=== PATIENT | female | born 1965 | race Caucasian/White ===

== ENCOUNTER 2016-09-26 21:00 | Emergency (ER) | payer OTHER ==
[~2016-09-26] VITALS: Ht 152.4 cm; Wt 63.5 kg
[2016-09-26 21:07] VITALS: BP 123/72; PULSE 99; RESP 16; TEMP 97.7; O2SAT 99
--- NOTE | 2016-09-26 21:23 | PD ---
Physical Exam Time Seen by Provider: 21:20 Narrative 51yo F sent from [facility] for vomiting blood. Reports having a problem w/alcohol. Patient states she didn't vomit blood, she coughed up blood and has been coughing blood ofr one week. States she sticks her fingers in her throat, because she OCD, and it causes her to bleed. Patient stable. Patient seen in triage. Awaiting bed placement. Data Data Last Documented VS Vital Signs Date Time Temp Pulse Resp B/P Pulse Ox O2 Delivery O2 Flow Rate FiO2 09/26/16 21:07 97.7 99 16 123/72 [address] [facility] Supervised Visit with YAIMA: Marce Cordero Sep 26, 2016 21:23
[2016-09-26] MEDS ORDERED: ZOLO25TA PO (21:50)
[2016-09-26] MEDS ORDERED: CYCL1TAB29 PO (21:50)
[2016-09-26] MEDS ORDERED: GABA300C5 PO (21:50)
[2016-09-26] MEDS ORDERED: DISU1TAB6 PO (21:50)
[2016-09-26] MEDS ORDERED: HYDR50TA94 PO (21:50)
--- NOTE | 2016-09-26 21:58 | RADRPT ---
EXAM DATE/TIME: 09/26/2016 21:42 [place] COMPARISON: No previous studies available for comparison. INDICATIONS : Cough MEDICAL HISTORY : None. SURGICAL HISTORY : None. ENCOUNTER: Initial ACUITY: 2 days PAIN SCORE: 0/10 LOCATION: Bilateral chest FINDINGS: PA and lateral views of the chest demonstrate the lungs to be symmetrically aerated without evidence of mass, infiltrate or effusion. The cardiomediastinal contours are unremarkable. Osseous structure s are intact. CONCLUSION: No acute disease. Isael Decker MD on September 26, 2016 at 21:56 Board Certified Radiologist. This report was verified electronically.
[2016-09-26 22:39] LABS: AUTOMATED NEUTROPHIL # 4.7 TH/MM3 (1.8-7.7); BASOPHIL # 0.1 TH/MM3 (0-0.2); BASOPHIL % 0.9 % (0.0-2.0); EOSINOPHIL % 0.4 % (0.0-4.0); HEMATOCRIT 45.1 % (35.0-46.0); HEMO FLAGS DIFF FINAL; LYMPH % 39.4 % (9.0-44.0); LYMPHOCYTE # 3.8 TH/MM3 (1.0-4.8); MEAN CELL VOLUME 101.8 FL (80.0-100.0); MEAN CORPUSCULAR HEMOGLOBIN 35.8 PG (27.0-34.0); MEAN CORPUSCULAR HGB CONC 35.2 % (32.0-36.0); MONO % 9.7 % (0.0-8.0); NEUT % 49.6 % (16.0-70.0); PLATELET COUNT 230 TH/MM3 (150-450); RED BLOOD COUNT 4.43 MIL/MM3 (4.00-5.30); RED CELL DISTRIBUTION WIDTH 13.1 % (11.6-17.2); WHITE BLOOD COUNT 9.6 TH/MM3 (4.0-11.0)
[2016-09-26 22:49] LABS: AMPHETAMINE, URINE NEG (NEG); BARBITURATES, URINE NEG (NEG); COCAINE, URINE NEG (NEG)
[2016-09-26 23:36] LABS: ALKALINE PHOSPHATASE 185 U/L (45-117); ALT (GPT) 80 U/L (10-53); ANION GAP 8 MEQ/L (5-15); AST (GOT) 105 U/L (15-37); BICARBONATE 24.8 MEQ/L (21.0-32.0); BLOOD UREA NITROGEN 7 MG/DL (7-18); CHLORIDE 106 MEQ/L (98-107); GLOMERULAR FILTRATION RATE 75 ML/MIN (>89); POTASSIUM 3.6 MEQ/L (3.5-5.1); SODIUM (NA) 139 MEQ/L (136-145); TOTAL BILIRUBIN ADULT 0.4 MG/DL (0.2-1.0)
[2016-09-27 00:08] VITALS: BP 143/67; PULSE 90; RESP 19; O2SAT 98
--- NOTE | 2016-09-27 01:30 | PD ---
HPI Chief Complaint: Medical Clearance Time Seen by Provider: 22:05 Travel History International Travel<30 days: No Contact w/Intl Traveler<30days: No Traveled to known affect area: No History of Present Illness HPI Patient is a 51 year old female who was sent to ER for medical clearance. Reports that she is an alcoholic and tried to go to [facility] and get help but she reported that she vomited up blood and has been coughing. Patient denies si/hi. Reports "I just need medical clearance to go to [facility]. " PFS Past Medical History Diminished Hearing: No Tetanus Vaccination: Unknown Influenza Vaccination: No ?: Not LMP: unknown Past Surgical History Surgical History: Unable to Obtain Social History Alcohol Use: Yes (ETOH abuse) Tobacco Use: Yes Substance Use: No Allergies-Medications (Allergen,Severity, Reaction): Coded Allergies: No Known Allergies (Unverified , 09/26/16) Reported Meds & Prescriptions Reported Meds & Active Scripts Active Reported Disulfiram 250 Mg Tab 250 Mg PO DAILY Hydroxyzine HCl 50 Mg Tab 50 Mg PO HS Flexeril (Cyclobenzaprine HCl) 10 Mg Tab 10 Mg PO TID Zoloft (Sertraline HCl) 25 Mg Tab 25 Mg PO DAILY Gabapentin 300 Mg Cap 300 Mg PO TID Review of Systems General / Constitutional: No: Fever Eyes: No: Visual changes HENT: No: Headaches Cardiovascular: No: Chest Pain or Discomfort Respiratory: No: Shortness of Breath Gastrointestinal: No: Abdominal Pain Genitourinary: No: Dysuria Musculoskeletal: No: Pain Skin: No Rash Neurologic: No: Weakness Psychiatric: Positive: Depression, Substance Abuse, No: Suicidal Ideations Endocrine: No: Polydipsia Hematologic/Lymphatic: No: Easy Bruising Physical Exam Narrative GENERAL: nad SKIN: Focused skin assessment warm/dry. HEAD: Atraumatic. Normocephalic. EYES: Pupils equal and round. No scleral icterus. No injection or drainage. ENT: No nasal bleeding or discharge. Mucous membranes pink and moist. NECK: Trachea midline. No JVD. CARDIOVASCULAR: Regular rate and rhythm. No murmur appreciated. RESPIRATORY: No accessory muscle use. Clear to auscultation. Breath sounds equal bilaterally. GASTROINTESTINAL: Abdomen soft, non-tender, nondistended. Hepatic and splenic margins not palpable. MUSCULOSKELETAL: No obvious deformities. No clubbing. No cyanosis. No edema. NEUROLOGICAL: Awake and alert. Normal speech. PSYCHIATRIC: patient intoxicated Data Data Last Documented VS Vital Signs Date Time Temp Pulse Resp B/P Pulse Ox O2 Delivery O2 Flow Rate FiO2 09/27/16 00:08 90 19 143/67 98 Room Air 09/26/16 21:07 97.7 Orders Complete Blood Count With Diff (09/26/16 21:35) Comprehensive Metabolic Panel (09/26/16 21:35) Psych Screen (09/26/16 21:35) Drug Screen, Random Urine (09/26/16 21:35) Chest, Pa & Lat (09/26/16 21:35) Urinalysis - C+S If Indicated (09/26/16 22:06) Labs Laboratory Tests Test 09/26/16 21:40 White Blood Count 9.6 TH/MM3 Red Blood Count 4.43 MIL/MM3 Hemoglobin 15.9 GM/DL Hematocrit 45.1 % Mean Corpuscular Volume 101.8 FL Mean Corpuscular Hemoglobin 35.8 PG Mean Corpuscular Hemoglobin 35.2 % Concent Red Cell Distribution Width 13.1 % Platelet Count 230 TH/MM3 Mean Platelet Volume 8.9 FL Neutrophils (%) (Auto) 49.6 % Lymphocytes (%) (Auto) 39.4 % Monocytes (%) (Auto) 9.7 % Eosinophils (%) (Auto) 0.4 % Basophils (%) (Auto) 0.9 % Neutrophils # (Auto) 4.7 TH/MM3 Lymphocytes # (Auto) 3.8 TH/MM3 Monocytes # (Auto) 0.9 TH/MM3 Eosinophils # (Auto) 0.0 TH/MM3 Basophils # (Auto) 0.1 TH/MM3 CBC Comment DIFF FINAL Differential Comment Sodium Level 139 MEQ/L Potassium Level 3.6 MEQ/L Chloride Level 106 MEQ/L Carbon Dioxide Level 24.8 MEQ/L Anion Gap 8 MEQ/L Blood Urea Nitrogen 7 MG/DL Creatinine 0.81 MG/DL Estimat Glomerular Filtration 75 ML/MIN Rate Random Glucose 103 MG/DL Calcium Level 8.3 MG/DL Total Bilirubin 0.4 MG/DL Aspartate Amino Transf 105 U/L (AST/SGOT) Alanine Aminotransferase 80 U/L (ALT/SGPT) Alkaline Phosphatase 185 U/L Total Protein 8.3 GM/DL Albumin 3.5 GM/DL Urine Opiates Screen NEG Urine Barbiturates Screen NEG Urine Amphetamines Screen NEG Urine Benzodiazepines Screen NEG Urine Cocaine Screen NEG Urine Cannabinoids Screen NEG MDM Medical Decision Making Medical Screen Exam Complete: Yes Emergency Medical Condition: Yes Interpretation(s) Vital Signs Date Time Temp Pulse Resp B/P Pulse Ox O2 Delivery O2 Flow Rate FiO2 09/27/16 00:08 90 19 143/67 98 Room Air 09/26/16 21:07 97.7 99 16 123/72 99 Room Air Laboratory Tests Test 09/26/16 21:40 White Blood Count 9.6 TH/MM3 (4.0-11.0) Red Blood Count 4.43 MIL/MM3 (4.00-5.30) Hemoglobin 15.9 GM/DL (11.6-15.3) Hematocrit 45.1 % (35.0-46.0) Mean Corpuscular Volume 101.8 FL (80.0-100.0) Mean Corpuscular Hemoglobin 35.8 PG (27.0-34.0) Mean Corpuscular Hemoglobin 35.2 % Concent (32.0-36.0) Red Cell Distribution Width 13.1 % (11.6-17.2) Platelet Count 230 TH/MM3 (150-450) Mean Platelet Volume 8.9 FL (7.0-11.0) Neutrophils (%) (Auto) 49.6 % (16.0-70.0) Lymphocytes (%) (Auto) 39.4 % (9.0-44.0) Monocytes (%) (Auto) 9.7 % (0.0-8.0) Eosinophils (%) (Auto) 0.4 % (0.0-4.0) Basophils (%) (Auto) 0.9 % (0.0-2.0) Neutrophils # (Auto) 4.7 TH/MM3 (1.8-7.7) Lymphocytes # (Auto) 3.8 TH/MM3 (1.0-4.8) Monocytes # (Auto) 0.9 TH/MM3 (0-0.9) Eosinophils # (Auto) 0.0 TH/MM3 (0-0.4) Basophils # (Auto) 0.1 TH/MM3 (0-0.2) CBC Comment DIFF FINAL Differential Comment Sodium Level 139 MEQ/L (136-145) Potassium Level 3.6 MEQ/L (3.5-5.1) Chloride Level 106 MEQ/L (98-107) Carbon Dioxide Level 24.8 MEQ/L (21.0-32.0) Anion Gap 8 MEQ/L (5-15) Blood Urea Nitrogen 7 MG/DL (7-18) Creatinine 0.81 MG/DL (0.50-1.00) Estimat Glomerular Filtration 75 ML/MIN (>89) Rate Random Glucose 103 MG/DL (74-106) Calcium Level 8.3 MG/DL (8.5-10.1) Total Bilirubin 0.4 MG/DL (0.2-1.0) Aspartate Amino Transf 105 U/L (15-37) (AST/SGOT) Alanine Aminotransferase 80 U/L (10-53) (ALT/SGPT) Alkaline Phosphatase 185 U/L (45-117) Total Protein 8.3 GM/DL (6.4-8.2) Albumin 3.5 GM/DL (3.4-5.0) Urine Opiates Screen NEG (NEG) Urine Barbiturates Screen NEG (NEG) Urine Amphetamines Screen NEG (NEG) Urine Benzodiazepines Screen NEG (NEG) Urine Cocaine Screen NEG (NEG) Urine Cannabinoids Screen NEG (NEG) Differential Diagnosis alcohol intoxication, gastritis, gastroenteritis, depression, alcohol intoxication Narrative Course Patient is a 51 year old female who presents to ER for medical clearance for [facility] Torres. Patient reports that she is an alcoholic, reports that during intake, she reported coughing of blood. Patient reports that she has an ulceration to the back of her mouth which has been bleeding, reports that the ulceration is no long bleeding and she is not longer "coughing up blood." Patient reports no fever/chills. Denies si/hi. screening labs as well as x-ray chest ordered Laboratory Tests Test 09/26/16 21:40 White Blood Count 9.6 TH/MM3 (4.0-11.0) Red Blood Count 4.43 MIL/MM3 (4.00-5.30) Hemoglobin 15.9 GM/DL (11.6-15.3) Hematocrit 45.1 % (35.0-46.0) Mean Corpuscular Volume 101.8 FL (80.0-100.0) Mean Corpuscular Hemoglobin 35.8 PG (27.0-34.0) Mean Corpuscular Hemoglobin 35.2 % Concent (32.0-36.0) Red Cell Distribution Width 13.1 % (11.6-17.2) Platelet Count 230 TH/MM3 (150-450) Mean Platelet Volume 8.9 FL (7.0-11.0) Neutrophils (%) (Auto) 49.6 % (16.0-70.0) Lymphocytes (%) (Auto) 39.4 % (9.0-44.0) Monocytes (%) (Auto) 9.7 % (0.0-8.0) Eosinophils (%) (Auto) 0.4 % (0.0-4.0) Basophils (%) (Auto) 0.9 % (0.0-2.0) Neutrophils # (Auto) 4.7 TH/MM3 (1.8-7.7) Lymphocytes # (Auto) 3.8 TH/MM3 (1.0-4.8) Monocytes # (Auto) 0.9 TH/MM3 (0-0.9) Eosinophils # (Auto) 0.0 TH/MM3 (0-0.4) Basophils # (Auto) 0.1 TH/MM3 (0-0.2) CBC Comment DIFF FINAL Differential Comment Sodium Level 139 MEQ/L (136-145) Potassium Level 3.6 MEQ/L (3.5-5.1) Chloride Level 106 MEQ/L (98-107) Carbon Dioxide Level 24.8 MEQ/L (21.0-32.0) Anion Gap 8 MEQ/L (5-15) Blood Urea Nitrogen 7 MG/DL (7-18) Creatinine 0.81 MG/DL (0.50-1.00) Estimat Glomerular Filtration 75 ML/MIN (>89) Rate Random Glucose 103 MG/DL (74-106) Calcium Level 8.3 MG/DL (8.5-10.1) Total Bilirubin 0.4 MG/DL (0.2-1.0) Aspartate Amino Transf 105 U/L (15-37) (AST/SGOT) Alanine Aminotransferase 80 U/L (10-53) (ALT/SGPT) Alkaline Phosphatase 185 U/L (45-117) Total Protein 8.3 GM/DL (6.4-8.2) Albumin 3.5 GM/DL (3.4-5.0) Urine Opiates Screen NEG (NEG) Urine Barbiturates Screen NEG (NEG) Urine Amphetamines Screen NEG (NEG) Urine Benzodiazepines Screen NEG (NEG) Urine Cocaine Screen NEG (NEG) Urine Cannabinoids Screen NEG (NEG) Last Impressions Chest X-Ray 09/26/162134 Signed Impressions: Service Date/Time: Monday, September 26, 2016 21:42 - CONCLUSION: No acute disease. Isael Decker MD Diagnosis Primary Impression: Transaminitis Casandra Rebolledo DO Sep 27, 2016 01:29
[2016-09-27 02:00] VITALS: BP 108/57; PULSE 70; RESP 18; O2SAT 96
[2016-09-27 06:00] VITALS: BP 132/74; PULSE 70; RESP 18; O2SAT 98
== END 2016-09-27 10:54 ==
LOC: NEPD 21:00 → NEPJ 09-27 10:54
DX: R74.0 Nonspecific elevation of levels of transaminase and lactic acid dehydrogenase [LDH] (principal); F10.10 Alcohol abuse, uncomplicated; Z72.0 Tobacco use
CPT/HCPCS: 71020; 80053; 80307; 85025; 99284